=== PATIENT | female | born 1980 | race Caucasian/White ===

== ENCOUNTER 2017-11-14 05:43 | Emergency (ER) | END 2017-11-14 07:01 | disposition home or self-care (01) ==

== ENCOUNTER 2017-11-14 23:57 | Emergency (ER) | END 2017-11-15 01:15 | disposition left against medical advice (07) ==

== ENCOUNTER 2017-11-24 18:28 | Emergency (ER) | END 2017-11-24 22:15 | disposition home or self-care (01) ==

== ENCOUNTER 2018-03-07 23:16 | Emergency (ER) | END 2018-03-08 02:22 | disposition home or self-care (01) ==

== ENCOUNTER 2018-03-19 12:32 | Emergency (ER) | payer OTHER ==
[~2018-03-19] VITALS: Ht 152.4 cm; Wt 51.8 kg
[~2018-03-19 12:32] MED LIST: BEN25 PO; CEPH-443 PO; FLUC150T PO; HC30CR25 TOP; TRIA15CR55 TOP
[2018-03-19 12:35] VITALS: BP 130/56; PULSE 99; RESP 18; Ht 152.4 cm; Wt 51.8 kg
--- NOTE | 2018-03-19 14:13 | ERD ---
ER Documentation Chief Complaint Chief Complaint cough and congestion x 3 days, would like std test HPI 37-year-old female patient with history of interstitial cystitis and congenital heart disease presents with history of abdominal pain, cough, chest pain, and concern for STD since Monday. Patient denies vaginal discharge, dysuria, lightheadedness, syncope, shortness of breath. States that she has had vomiting and diarrhea. Denies fevers. Denies allergies. Says she is taking antibiotics for UTI. History of heart surgery. Denies social. ROS All systems reviewed and are negative except as per history of present illness. Medications Home Meds Active Scripts Dicyclomine HCl (Dicyclomine HCl) 10 Mg Capsule, 10 MG PO TID PRN for ABDOMINAL CRAMPING, #20 CAP 0 Refills Prov:CLAUDE POST 03/19/18 Benzonatate* (Benzonatate*) 200 Mg Capsule, 200 MG PO TID PRN for COUGH, #20 CAP Prov:NADINECLAUDE MCCONNELL 03/19/18 Fluconazole* (Diflucan*) 150 Mg Tablet, 150 MG PO ONCE, #1 TAB Prov:PASILABANJACIELAR F 03/08/18 Cephalexin* (Keflex*) 500 Mg Capsule, 500 MG PO TID for 7 Days, CAP Prov:PASILAJACIEL RAMONAR F 03/08/18 Fluconazole* (Diflucan*) 150 Mg Tablet, 150 MG PO ONCE, #1 TAB Prov:JOE POWERS PA-C 11/24/17 Triamcinolone Acetonide (Triamcinolone Acetonide) 0.1% - 15 Gm Cream.gm., 1 APPLIC TOP BID, #1 TUB Prov:JOE POWERS PA-C 11/24/17 Diphenhydramine Hcl* (Benadryl*) 25 Mg Cap, 25 MG PO Q6, #30 CAP Prov:JOE POWERS PA-C 11/24/17 Cephalexin* (Keflex*) 500 Mg Capsule, 500 MG PO QID for 7 Days, CAP Prov:OCTAVIA JO PA-C 11/14/17 Hydrocortisone* Topical (Hydrocortisone* Topical) 2.5%-28.3 Gm Cream..g., 1 APPLIC TOP BID, #1 TUB Prov:OCTAVIA JO PA-C 11/14/17 Allergies Allergies: Coded Allergies: No Known Allergy (Unverified , 03/19/18) PMhx/Soc History of Surgery: Yes (MURMUR REPAIR) Anesthesia Reaction: No Hx Miscellaneous Medical Probl: Yes (interstitial cystitis) Hx Alcohol Use: Yes Hx Substance Use: Yes (MAIJUANA) Hx Tobacco Use: No Smoking Status: Current every day smoker FmHx Family History: No diabetes, No coronary disease, No other Physical Exam Vitals Vital Signs Date Temp Pulse Resp B/P (MAP) Pulse Ox O2 O2 Flow FiO2 Time Delivery Rate 03/19/18 98.3 99 18 130/56 99 12:35 (80) Physical Exam General: Well developed, well nourished. No acute distress. Throat: No tonsillar erythema, edema, or exudates noted bilaterally. No masses, lesions, or abscesses noted. Uvula midline. Airway patent. Mouth: Mucus membranes moist. No drooling, ulcers, bleeding, or lesions, noted. Neck: No lymphadenopathy noted. Tracheal midline, no goiter or nodules noted. No JVD. Heart: RR w/o murmur, rubs, or gallops. Lungs: Clear to auscultation bilaterally w/o wheezes, crackles, rhonchi. Symmetric rise and fall. Equal breath sounds. Abdomen: + McBurney's point tenderness with guarding.. Positive suprapubic tenderness with guarding. No masses, lesions, or ecchymoses. Normoactive bowel sounds. Patient ambulatory. No CVA tenderness. : Patient refused pelvic exam to test for signs of STD and cervical motion tenderness. Psych: Normal mood and affect. Result Diagram: 03/19/18 1340 03/19/18 1340 Results 24 hrs Laboratory Tests Test 03/19/18 13:40 03/19/18 13:43 White Blood Count 6.6 10^3/ul Red Blood Count 4.35 10^6/ul Hemoglobin 12.4 g/dl Hematocrit 37.7 % Mean Corpuscular Volume 86.7 fl Mean Corpuscular Hemoglobin 28.5 pg Mean Corpuscular Hemoglobin Concent 32.9 g/dl Red Cell Distribution Width 12.2 % Platelet Count 344 10^3/UL Mean Platelet Volume 9.4 fl Immature Granulocytes % 0.200 % Neutrophils % 59.3 % Lymphocytes % 29.9 % Monocytes % 9.8 % Eosinophils % 0.2 % Basophils % 0.6 % Nucleated Red Blood Cells % 0.0 /100WBC Immature Granulocytes # 0.010 10^3/ul Neutrophils # 3.9 10^3/ul Lymphocytes # 2.0 10^3/ul Monocytes # 0.7 10^3/ul Eosinophils # 0.0 10^3/ul Basophils # 0.0 10^3/ul Nucleated Red Blood Cells # 0.0 10^3/ul Urine Color YELLOW Urine Clarity CLEAR Urine pH 5.0 Urine Specific Egan 1.015 Urine Ketones NEGATIVE mg/dL Urine Nitrite NEGATIVE mg/dL Urine Bilirubin NEGATIVE mg/dL Urine Urobilinogen NEGATIVE mg/dL Urine Leukocyte Esterase NEGATIVE Esme/ul Urine Microscopic RBC 1 /HPF Urine Microscopic WBC 0 /HPF Urine Hemoglobin 1+ mg/dL Urine Glucose NEGATIVE mg/dL Urine Total Protein NEGATIVE mg/dl Sodium Level 140 mmol/L Potassium Level 4.7 mmol/L Chloride Level 104 mmol/L Carbon Dioxide Level 30 mmol/L Anion Gap 6 Blood Urea Nitrogen 9 mg/dl Creatinine 0.63 mg/dl Est Glomerular Filtrat Rate mL/min > 60 mL/min Glucose Level 97 mg/dl Calcium Level 9.3 mg/dl Total Bilirubin 0.1 mg/dl Direct Bilirubin 0.00 mg/dl Indirect Bilirubin 0.1 mg/dl Aspartate Amino Transf (AST/SGOT) 27 IU/L Alanine Aminotransferase (ALT/SGPT) 23 IU/L Alkaline Phosphatase 63 IU/L Total Protein 7.7 g/dl Albumin 4.4 g/dl Globulin 3.30 g/dl Albumin/Globulin Ratio 1.33 Lipase 73 U/L POC Beta HCG, Qualitative NEGATIVE Procedures/MDM DIAGNOSTIC IMAGING REPORT Patient: MATT ROJAS : 1980 Age: 37 Sex: F MR #: [id number] DOS: 03/19/18 1302 Ordering MD: CLAUDE POST Location: [facility] Room/Bed: PROCEDURE: CT ABDOMEN AND PELVIS WITHOUT CONTRAST. CLINICAL INDICATION: Abdominal pain TECHNIQUE: CT scan of the abdomen and pelvis without contrast was performed on a multidetector high-resolution CT scanner. The patient was scanned without intravenous contrast. Coronal and sagittal reformatted images were obtained from the axial source images. Images were reviewed on a high-resolution PACS workstation. The total exam CTDI equals 5.2 mGy and the total exam DLP equals 244.1 mGy-cm. One or more of the following dose reduction techniques were used: Automated exposure control. Adjustment of the mA and/or kV according to patient size. Use of iterative reconstruction technique. DICOM images are available COMPARISON: None FINDINGS: CT abdomen: The lung bases are clear. The heart size is within normal limits. There is no significant pericardial effusion. Hepatic morphology is within normal limits. No gross contour deforming masses. The gallbladder is contracted. No evidence of intrahepatic or extrahepatic biliary dilatation. The spleen and pancreas are within normal limits. Both adrenal glands are within normal limits. Both kidneys are in normal anatomic position. No evidence of obstruction or hydronephrosis. No gross renal/ureteric calculi. The visualized GI tract demonstrate normal caliber loops of small and large bowel. No evidence of bowel obstruction. Stool filled loops of large bowel suggestive of constipation. The appendix is not clearly identified, however no inflammatory changes within the right lower quadrant. The unenhanced aorta is unremarkable. There is no significant retroperitoneal lymphadenopathy. CT pelvis: The bladder is within normal limits. The uterus is prominent with fluid with endometrial canal. The rectosigmoid colon demonstrate diverticulosis. No significant free fluid. No pelvic lymphadenopathy. The visualized osseous structures, appears to be within normal limits. IMPRESSION: 1. No evidence of acute intra-abdominal/pelvic inflammatory process. No evidence of bowel obstruction. Stool filled loops of large bowel suggestive of constipation. 2. No gross renal/ureteric calculi. No evidence of obstructive uropathy. 3. No evidence of free fluid or free air. No gross focal fluid collections. 4. Fluid within the endometrial canal, which can be physiologic within normal limits. Consider correlation with ultrasound of the pelvis, if clinically indicated. RPTAT: AAPP Physician Devonte Date Time Electronically viewed and signed by Physician Devonte on 03/19/2018 15:00 JL/ CC: CLAUDE POST EKG: Rate/Rhythm: Sinus rhythm with marked sinus arrhythmia QRS, ST, T-waves: No changes consistent w/ acute ischemia Impression: No evidence of ischemia or arrhythmia ER Course: CBC, CMP, EKG, UA, HCG, Lipase, UA, CT abdomen/pelvis, G/C - All WNL. G/C pending. MDM: 37-year-old female patient with history of interstitial cystitis and congenital heart disease presents with history of abdominal pain, cough, chest pain, and concern for STD since Monday. Patient denies vaginal discharge, dysuria, lightheadedness, syncope, shortness of breath. States that she has had vomiting and diarrhea. Due to patients history of congenital heart defect and chest pain, an EKG was ordered - WNL. Patient had hisotry of abdominal plus acute tenderness and guarding on palpation of McBurneys point along with vomiting and elevated heart rate so abdominal CT, lipase, CMP and CBC were ordered - WNL. Patient expressed concern that partner is cheating on her and she's afraid of STD, requested a G/C. UA ordered - WNL. Patient refused pelvic exam to assess for signs of UTI and cervical motion tenderness. Patient most likely has viral gastroenteritis along with viral URI, for which bentyl and benzonatate were prescribed. I have low suspicion for pneumonia, tuberculosis, PE, OH, AAA, aortic dissection, ovarian torsion, ectopic, or DKA based on patients history, labs, physical exam, and imaging. Patient discharged with strict ER precautions. Patient advised to follow up with PMD. All questions answered at discharge. Departure Diagnosis: Primary Impression: URI (upper respiratory infection) URI type: unspecified viral URI Qualified Codes: J06.9 - Acute upper respiratory infection, unspecified Additional Impressions: Abdominal pain Abdominal location: lower abdomen, unspecified Qualified Codes: R10.30 - Lower abdominal pain, unspecified High risk sexual behavior High risk sexual behavior type: unspecified Qualified Codes: Z72.51 - High risk heterosexual behavior Condition: CLAUDE Sandhu Mar 19, 2018 14:13
[2018-03-19] MEDS ORDERED: DICY10CA40 PO (15:33)
[2018-03-19] MEDS ORDERED: BENZ200C68 PO (15:33)
== END 2018-03-19 15:43 | disposition home or self-care (01) ==
LOC: FTE 12:32
DX: J06.9 Acute upper respiratory infection, unspecified (principal); R10.30 Lower abdominal pain, unspecified; F17.210 Nicotine dependence, cigarettes, uncomplicated; R10.9 Unspecified abdominal pain; Z72.51 High risk heterosexual behavior
CPT/HCPCS: 36415; 74176; 80053; 81001; 81025; 83690; 85025; 87591; 93005; Z7502

== ENCOUNTER 2018-07-01 20:30 | Emergency (ER) | payer OTHER ==
[~2018-07-01] VITALS: Ht 152.4 cm; Wt 50.2 kg
[~2018-07-01 20:30] MED LIST changes: +BENZ200C68 PO; +DICY10CA40 PO
[2018-07-01 20:49] VITALS: BP 119/58; PULSE 76; RESP 16; Ht 152.4 cm; Wt 50.2 kg
[2018-07-02] MEDS ORDERED: FAMO-96 PO (00:41)
[2018-07-02] MEDS ORDERED: BEN25 PO (00:41)
--- NOTE | 2018-07-02 00:45 | ERD ---
ER Documentation Chief Complaint Chief Complaint RT ARM BUG BITES WITH SWELLING HPI This is a 37-year-old female patient who presents to the emergency room with complaint of mosquito or spider bites to her right elbow causing area of swelling and hives. Patient has had this before with similar symptoms. No fever, no malaise, no paresthesia. +pruritus. No chronic medical conditions. ROS All systems reviewed and are negative except as per history of present illness. Medications Home Meds Active Scripts Famotidine* (Pepcid*) 20 Mg Tablet, 20 MG PO DAILY for 3 Days, #3 TAB Prov:CHIKA HICKEY NP 07/02/18 Diphenhydramine Hcl* (Benadryl*) 25 Mg Cap, 25 MG PO Q6 PRN for RASH for 5 Days, #20 CAP Prov:CHIKA HICKEY NP 07/02/18 Dicyclomine HCl (Dicyclomine HCl) 10 Mg Capsule, 10 MG PO TID PRN for ABDOMINAL CRAMPING, #20 CAP 0 Refills Prov:CLAUDE POST 03/19/18 Benzonatate* (Benzonatate*) 200 Mg Capsule, 200 MG PO TID PRN for COUGH, #20 CAP Prov:CLAUDE POST 03/19/18 Fluconazole* (Diflucan*) 150 Mg Tablet, 150 MG PO ONCE, #1 TAB Prov:JASON MARION 03/08/18 Cephalexin* (Keflex*) 500 Mg Capsule, 500 MG PO TID for 7 Days, CAP Prov:PASILAJACIEL RAMONAR F 03/08/18 Fluconazole* (Diflucan*) 150 Mg Tablet, 150 MG PO ONCE, #1 TAB Prov:JOE POWERS PA-C 11/24/17 Triamcinolone Acetonide (Triamcinolone Acetonide) 0.1% - 15 Gm Cream.gm., 1 APPLIC TOP BID, #1 TUB Prov:JOE POWERS PA-C 11/24/17 Diphenhydramine Hcl* (Benadryl*) 25 Mg Cap, 25 MG PO Q6, #30 CAP Prov:JOE POWERS PA-C 11/24/17 Cephalexin* (Keflex*) 500 Mg Capsule, 500 MG PO QID for 7 Days, CAP Prov:OCTAVIA JO PA-C 11/14/17 Hydrocortisone* Topical (Hydrocortisone* Topical) 2.5%-28.3 Gm Cream..g., 1 APPLIC TOP BID, #1 TUB Prov:OCTAVIA JO PA-C 11/14/17 Allergies Allergies: Coded Allergies: No Known Allergy (Unverified , 03/19/18) PMhx/Soc History of Surgery: Yes (heart sx) Anesthesia Reaction: No Hx Miscellaneous Medical Probl: Yes (interstitial cystitis) Hx Alcohol Use: Yes (occasional) Hx Substance Use: No Hx Tobacco Use: Yes (marijuana; CBD) Smoking Status: Current every day smoker Physical Exam Vitals Vital Signs Date Temp Pulse Resp B/P (MAP) Pulse Ox O2 O2 Flow FiO2 Time Delivery Rate 07/01/18 98.9 76 16 119/58 100 20:49 (78) Physical Exam Const: No acute distress Head: Atraumatic Eyes: Normal Conjunctiva, PERRL ENT: Normal External Ears, Nose and Mouth. Neck: Full range of motion. No meningismus. No lymphadenopathy Resp: Clear to auscultation bilaterally, no wheezing, no stridor Cardio: Regular rate and rhythm, no murmurs Abd: Soft, non tender, non distended. Normal bowel sounds Skin: No petechiae. Right elbow with 3 discrete macular lesions, round, flat, red, no excoriation, no erythema, +mild swelling Back: No midline or flank tenderness Ext: Right elbow and RUE without decreased sensation, no weakness, no decreased ROM at all joints, cap refill <2 sec, radial pulse +2 Neur: Awake and alert Psych: Normal Mood and Affect Results 24 hrs Current Medications Medications Dose Sig/Stacy Start Time Status Last (Trade) Ordered Route PRN Stop Time Admin Dose Reason Admin 25 mg ONCE ONCE 07/02/18 DC Diphenhydrami PO 01:00 ne HCl 07/02/18 01:00 (Benadryl) Famotidine 40 mg ONCE ONCE 07/02/18 DC 07/02/18 (Pepcid) PO 01:00 00:50 07/02/18 01:01 25 mg ONCE ONCE 07/02/18 DC 07/02/18 Diphenhydrami IM 01:00 00:56 ne HCl 07/02/18 01:01 (Benadryl) Procedures/MDM This is a 37 yo female who presents with concern of allergic reaction to possible bug bite to right elbow increasing since yesterday. Patient presents with, "I need cortisone shot" stating she had this before and it "helped immediately." Patient was advised on severity of her condition being very mild and not necessitating steroid injection. Patient was provided with Benadryl in ED with resulting reduction in pruritus, redness, and no additional lesions. Patient refusing prescription for antihistamine such as Zyrtec, patient already applying hydrocortisone cream. Patient insistent on Benadryl IM. MDM: Patient's dermatologic symptoms have stabilized while they have been evaluated in the department and are appropriate for outpatient work up. Patient appears to be experiencing localized topical allergic reaction to possible bug bite or environmental exposure. There is no indication for anaphylaxis, infection, contagious disease, or cellulitis. No evidence of Rodríguez Cortez's syndrome, Kawasaki's, or sepsis. Instructions provided on self-care including cool soaks, oatmeal bath, topical solutions such as Caladryl, hydrocortisone, and Benadryl. Instructions provided on s/sx of worsening of condition including anaphylaxis and when to seek emergent medical treatment. Patient instructed to follow-up with primary provider in 2-3 days for reevaluation. DISPOSITION: Home to follow-up with primary care provider. Departure Diagnosis: Primary Impression: Urticaria Patient Instructions: Hives Referrals: [facility] Additional Instructions: Thank you very much for allowing us to participate in your care. Your health and safety is our top priority at [facility]. Call your primary care doctor TOMORROW for an appointment during the next 2-4 days and bring all the information and medications prescribed. Have prescriptions filled and follow precisely the directions on the label. If the symptoms get worse and your provider is unavailable, return to the Emergency Department immediately. APPLY COOL COMPRESS TO AREA OF RASH 2-3 TIMES PER DAY AVOID SCRATCHING CONTINUE TO APPLY HYDROCORTISONE CREAM USE BENADRYL NEEDED FOR ITCHING AND RASH CHIKA HICKEY NP Jul 02, 2018 00:45
[2018-07-02] MEDS ORDERED: FAMOTIDINE 20 MG TAB PO ONE (01:00)
[2018-07-02] MEDS ORDERED: DIPHENHYDRAMINE 25 MG CAP PO ONE (01:00)
[2018-07-02] MEDS ORDERED: DIPHENHYDRAMINE 50 MG INJ IM ONE (01:00)
== END 2018-07-02 01:01 | disposition home or self-care (01) ==
LOC: FTE 20:30
DX: L50.9 Urticaria, unspecified (principal); F17.210 Nicotine dependence, cigarettes, uncomplicated
CPT/HCPCS: J1200; Z7610; 96372

== ENCOUNTER 2018-07-22 00:16 | Emergency (ER) | payer OTHER ==
[~2018-07-22] VITALS: Ht 152.4 cm; Wt 49.0 kg
[~2018-07-22 00:16] MED LIST changes: +FAMO-96 PO
[2018-07-22 00:32] VITALS: BP 103/62; PULSE 76; RESP 18; Ht 152.4 cm; Wt 49.0 kg
[2018-07-22] MEDS ORDERED: CIPR-193 PO (05:57)
--- NOTE | 2018-07-22 06:02 | ERD ---
ER Documentation Chief Complaint Chief Complaint headache/sinus pressure for a few weeks, urinary frequency HPI 37-year-old female presents for headache and urinary frequency x1 week. Head ache noted to be diffuse, described as a pressure-like sensation, states that is 8 out of 10. The urinary frequency is accompanied by some mild burning. She states that she been having some dizziness as well. She tried Motrin and CBD oil without THC. She states that the pain is relieved mildly by those medications she denies fevers. Denies chest pain or shortness of breath. No other modifying factors noted. No other treatments tried at home. ROS All systems reviewed and are negative except as per history of present illness. Medications Home Meds Active Scripts Ciprofloxacin Hcl* (Ciprofloxacin Hcl*) 250 Mg Tablet, 250 MG PO BID for uti for 5 Days, #10 TAB Prov:SYED SANCHEZ DO 07/22/18 Famotidine* (Pepcid*) 20 Mg Tablet, 20 MG PO DAILY for 3 Days, #3 TAB Prov:CHIKA HICKEY NP 07/02/18 Diphenhydramine Hcl* (Benadryl*) 25 Mg Cap, 25 MG PO Q6 PRN for RASH for 5 Days, #20 CAP Prov:CHIKA HICKEY NP 07/02/18 Dicyclomine HCl (Dicyclomine HCl) 10 Mg Capsule, 10 MG PO TID PRN for ABDOMINAL CRAMPING, #20 CAP 0 Refills Prov:CLAUDE POST 03/19/18 Benzonatate* (Benzonatate*) 200 Mg Capsule, 200 MG PO TID PRN for COUGH, #20 CAP Prov:CLAUDE POST 03/19/18 Fluconazole* (Diflucan*) 150 Mg Tablet, 150 MG PO ONCE, #1 TAB Prov:PASILAJACIEL RAMONAR F 03/08/18 Cephalexin* (Keflex*) 500 Mg Capsule, 500 MG PO TID for 7 Days, CAP Prov:PASILABANKLAR F 03/08/18 Fluconazole* (Diflucan*) 150 Mg Tablet, 150 MG PO ONCE, #1 TAB Prov:JOE POWERS PA-C 11/24/17 Triamcinolone Acetonide (Triamcinolone Acetonide) 0.1% - 15 Gm Cream.gm., 1 APPLIC TOP BID, #1 TUB Prov:JOE POWERS PA-C 11/24/17 Diphenhydramine Hcl* (Benadryl*) 25 Mg Cap, 25 MG PO Q6, #30 CAP Prov:JOE POWERS JEAN-CLAUDE 11/24/17 Cephalexin* (Keflex*) 500 Mg Capsule, 500 MG PO QID for 7 Days, CAP Prov:SANDROOCTAVIA Park PA-C 11/14/17 Hydrocortisone* Topical (Hydrocortisone* Topical) 2.5%-28.3 Gm Cream..g., 1 APPLIC TOP BID, #1 TUB Prov:SANDROOCTAVIAMagda BERMEO 11/14/17 Allergies Allergies: Coded Allergies: No Known Allergy (Unverified , 03/19/18) PMhx/Soc History of Surgery: Yes (heart sx) Anesthesia Reaction: No Hx Miscellaneous Medical Probl: Yes (interstitial cystitis) Hx Alcohol Use: Yes (occasional) Hx Substance Use: No Hx Tobacco Use: Yes (marijuana; CBD) Smoking Status: Current some day smoker FmHx Family History: No coronary disease Physical Exam Vitals Vital Signs Date Temp Pulse Resp B/P (MAP) Pulse Ox O2 O2 Flow FiO2 Time Delivery Rate 07/22/18 98.2 76 18 103/62 99 00:32 (76) Physical Exam Const: No acute distress Head: Atraumatic Eyes: Normal Conjunctiva ENT: Normal External Ears, Nose and Mouth. Neck: Full range of motion. No meningismus. Resp: Clear to auscultation bilaterally Cardio: Regular rate and rhythm, no murmurs Abd: Soft, non tender, non distended. Normal bowel sounds Skin: No petechiae or rashes Back: No midline or flank tenderness Ext: No cyanosis, or edema Neur: Awake and alert Psych: Normal Mood and Affect Results 24 hrs Laboratory Tests Test 07/22/18 05:37 Bedside Urine pH (LAB) 5.5 Bedside Urine Protein (LAB) Trace Bedside Urine Glucose (UA) Negative Bedside Urine Ketones (LAB) Negative Bedside Urine Blood Trace-lysed Bedside Urine Nitrite (LAB) Negative Bedside Urine Leukocyte Esterase (L Negative Procedures/MDM Medical Decision Making: Differential diagnosis includes but not limited to primary headache, subarachnoid hemorrhage, meningitis, temporal arteritis, glaucoma, hypertension, cerebral ischemia, carotid or vertebral arterial dissection, brain tumor. Patient appeared well on physical examination, nontoxic appearing. No history of fever. There is low suspicion for meningitis. Given no temporal area tenderness to palpation, low suspicion for temporal arteritis. Patient has no vision changes and pupils are reactive bilaterally, low suspicion for glaucoma. There is also no focal neurologic deficits to suggest a brain tumor. Patient has normal sensation and muscle strength, low suspicion for cerebral ischemia. Given headache is similar to prior headaches, patient possibly has a primary headache. Offered to give the patient pain medications however she states that she does not want to take any pain medications. Urine dipstick was negative for urinary tract infection however given patient's symptoms, patient will be treated empirically with antibiotics for urinary tract infection. Patient given prescription for supportive medication(s) and Cipro for UTI. Patient advised to follow up with PCP in 1-2 days. Patient advised to return to ED for new or worsening symptoms. Patient stable on discharge from the ED. Disclaimer: Inadvertent spelling and grammatical errors are likely due to EHR /dictation software use and do not reflect on the overall quality of patient care. Also, please note that the electronic time recorded on this note does not necessarily reflect the actual time of the patient encounter. Departure Diagnosis: Primary Impression: Headache Headache type: unspecified Headache chronicity pattern: unspecified pattern Intractability: not intractable Qualified Codes: R51 - Headache Additional Impression: UTI (urinary tract infection) Urinary tract infection type: site unspecified Hematuria presence: without hematuria Qualified Codes: N39.0 - Urinary tract infection, site not specified Condition: Fair Patient Instructions: Understanding Urinary Tract Infections (UTIs), Self-Care for Headaches Referrals: [facility], [facility] YOU HAVE RECEIVED A MEDICAL SCREENING EXAM AND THE RESULTS INDICATE THAT YOU DO NOT HAVE A CONDITION THAT REQUIRES URGENT TREATMENT IN THE EMERGENCY DEPARTMENT. FURTHER EVALUATION AND TREATMENT OF YOUR CONDITION CAN WAIT UNTIL YOU ARE SEEN IN YOUR DOCTORS OFFICE WITHIN THE NEXT 1-2 DAYS. IT IS YOUR RESPONSIBILITY TO MAKE AN APPOINTMENT FOR FOLOW-UP CARE. IF YOU HAVE A PRIMARY DOCTOR --you should call your primary doctor and schedule an appointment IF YOU DO NOT HAVE A PRIMARY DOCTOR YOU CAN CALL OUR PHYSICIAN REFERRAL HOTLINE AT IF YOU CAN NOT AFFORD TO SEE A PHYSICIAN YOU CAN CHOSE FROM THE FOLLOWING [facility] [address] [facility] [address] [facility] [facility] [address] [facility] [address] [facility] [address] [facility]. [facility] [address] Additional Instructions: Call your primary care doctor TOMORROW for an appointment during the next 1-2 days.See the doctor sooner or return here if your condition worsens before your appointment time. SYED SANCHEZ DO July 22, 2018 06:02
== END 2018-07-22 06:03 | disposition home or self-care (01) ==
LOC: FTE 00:16
DX: R51 Headache (principal); F17.210 Nicotine dependence, cigarettes, uncomplicated; N39.0 Urinary tract infection, site not specified
CPT/HCPCS: 81003; Z7502; 99283

== ENCOUNTER 2018-07-25 04:41 | Emergency (ER) | payer OTHER ==
[~2018-07-25] VITALS: Wt 48.3 kg
[~2018-07-25 04:41] MED LIST changes: +CIPR-193 PO
[2018-07-25 04:45] VITALS: BP 124/55; PULSE 130; RESP 20
== END 2018-07-25 06:02 | disposition left against medical advice (07) ==
LOC: FTE 04:41
DX: Z53.21 Procedure and treatment not carried out due to patient leaving prior to being seen by health care provider (principal)